=== PATIENT | female | born 2000 | race African-American/Black ===

== ENCOUNTER 2022-05-12 12:42 | Emergency (ER) | payer MEDICAID ==
[~2022-05-12] VITALS: Ht 157.5 cm; Wt 64.0 kg
[2022-05-12] MEDS ORDERED: KETOROLAC 60MG/2ML VIAL IM ONE (13:30)
[2022-05-12 14:08] VITALS: BP 110/74
[2022-05-12] MEDS ORDERED: SODIUM CHLORIDE 0.9% 1,000 ML IV ONE (15:30)
[2022-05-12] MEDS ORDERED: METOCLOPRAMIDE HCL 10MG/2ML VIAL IV ONE (15:30)
[2022-05-12] MEDS ORDERED: DIPHENHYDRAMINE 50MG/ML VIAL IV ONE (15:30)
== END 2022-05-12 15:56 | disposition left against medical advice (07) ==
LOC: ER 13:20
DX: R51.9 Headache, unspecified (principal); Z20.822 Contact with and (suspected) exposure to COVID-19
CPT/HCPCS: 81025; 87426; 93005; 96372; 99284; J1885; J7030

== ENCOUNTER 2022-06-03 12:23 | Emergency (ER) | payer MEDICAID ==
[~2022-06-03] VITALS: Ht 154.9 cm; Wt 64.0 kg
[2022-06-03] MEDS ORDERED: ACETAMINOPHEN 325MG TABLET PO STA (13:16)
[2022-06-03] MEDS ORDERED: SODIUM CHLORIDE 0.9% 1,000 ML IV ONE (13:30)
[2022-06-03] MEDS ORDERED: KETOROLAC 30MG/ML VIAL IV ONE (13:30)
[2022-06-03 14:08] LABS: CLARITY URINE CLEAR (CLEAR); COLOR URINE YELLOW (YELLOW); KETONES URINE NEGATIVE (NEGATIVE); LEUKOCYTE ESTERASE URINE TRACE (NEGATIVE); NITRITE URINE NEGATIVE (NEGATIVE); OCCULT BLOOD URINE NEGATIVE (NEGATIVE); PROTEIN URINE NEGATIVE (NEGATIVE); SPECIFIC GRAVITY URINE 1.018 (1.005-1.030)
[2022-06-03 14:32] LABS: BASOPHILS % 0.9 % (0.0-2.0); EOSINOPHILS % 2.5 % (0.0-5.0); HEMATOCRIT. 39.8 % (36.0-48.0); LYMPHOCYTES % 23.4 % (20.0-50.0); MEAN CORPUSCULAR HEMOGLOBIN 28.7 pg (28.0-32.0); MEAN CORPUSCULAR VOLUME 87.8 fL (81.0-99.0); MONOCYTES % 8.9 % (2.0-8.0); NEUTROPHILS % 64.3 % (40.0-76.0); PLATELET 269 x1000/uL (130-400); RED BLOOD CELL COUNT 4.53 mill/uL (4.2-5.4); RED CELL DISTRIBUTION WIDTH 13.8 % (11.6-14.6)
[2022-06-03 14:39] LABS: CHLORIDE 107 mEq/L (98-107)
[2022-06-03 14:46] LABS: HCG SCREEN NEGATIVE
[2022-06-03] MEDS ORDERED: SUMA100T16 MT (15:29)
[2022-06-03] MEDS ORDERED: DIPHENHYDRAMINE 50MG/ML VIAL IV NR (15:30)
[2022-06-03] MEDS ORDERED: PROCHLORPERAZINE 10MG/2ML VIAL IV NR (15:30)
[2022-06-03 15:45] VITALS: BP 119/74
[2022-06-03] MEDS ORDERED: ACETAMINOPHEN 325MG TABLET PO NR (15:45)
[2022-06-03] MEDS ORDERED: KETOROLAC 30MG/ML VIAL IV NR (15:45)
== END 2022-06-03 17:15 | disposition home or self-care (01) ==
LOC: ER 12:25
DX: R55 Syncope and collapse (principal); R51.9 Headache, unspecified
CPT/HCPCS: 36415; 71045; 80053; 81003; 83880; 84484; 84703; 85025; 93005; 96361; 96374; 96375; 99285; J0780; J1200; J1885; J7030

== ENCOUNTER 2022-08-26 11:37 | Emergency (ER) | payer MEDICAID ==
[~2022-08-26] VITALS: Ht 160 cm; Wt 59.0 kg
[~2022-08-26 11:37] MED LIST: SUMA100T16 MT
[2022-08-26] MEDS ORDERED: KETOROLAC 30MG/ML VIAL IM ONE (13:15)
[2022-08-26 13:50] VITALS: BP 126/88
[2022-08-26 14:03] LABS: HEMATOCRIT. 38.9 % (36.0-48.0); HEMOGLOBIN. 12.9 g/dL (12.0-16.0); MEAN CORPUSCULAR HEMOGLOBIN 28.7 pg (28.0-32.0); MEAN CORPUSCULAR VOLUME 86.2 fL (81.0-99.0); MEAN PLATELET VOLUME 8.2 fl (7.4-10.4); PLATELET 240 x1000/uL (130-400); RED BLOOD CELL COUNT 4.52 mill/uL (4.2-5.4); RED CELL DISTRIBUTION WIDTH 13.8 % (11.6-14.6)
[2022-08-26 14:12] LABS: CHLORIDE 107 mEq/L (98-107)
[2022-08-26] MEDS ORDERED: ACET-2708 MT (14:32)
[2022-08-26] MEDS ORDERED: PSEU120T56 MT (14:32)
[2022-08-26 14:53] LABS: PLATELET ESTIMATE NORMAL
== END 2022-08-26 14:56 | disposition home or self-care (01) ==
LOC: ER 11:37
DX: B34.9 Viral infection, unspecified (principal)
CPT/HCPCS: 36415; 80048; 81025; 85025; 96372; 99283; J1885

== ENCOUNTER 2022-11-14 19:32 | Emergency (ER) | payer MEDICAID ==
[~2022-11-14] VITALS: Ht 157.5 cm; Wt 64.0 kg
[~2022-11-14 19:32] MED LIST changes: +ACET-2708 MT; +PSEU120T56 MT
[2022-11-14 20:11] VITALS: BP 123/82
== END 2022-11-14 21:30 | disposition left against medical advice (07) ==
LOC: ER 19:32
DX: Z53.21 Procedure and treatment not carried out due to patient leaving prior to being seen by health care provider (principal)

== ENCOUNTER 2023-02-15 06:10 | Emergency (ER) | payer MEDICAID, OTHER ==
[~2023-02-15] VITALS: Ht 157.5 cm; Wt 64.0 kg
[2023-02-15 07:44] LABS: BASOPHILS % 0.6 % (0.0-2.0); HEMATOCRIT. 35.4 % (36.0-48.0); HEMOGLOBIN. 11.8 g/dL (12.0-16.0); LYMPHOCYTES % 29.1 % (20.0-50.0); MEAN CORPUSCULAR HEMOGLOBIN 28.6 pg (28.0-32.0); MEAN CORPUSCULAR VOLUME 85.8 fL (81.0-99.0); MEAN PLATELET VOLUME 7.6 fl (7.4-10.4); MONOCYTES % 11.2 % (2.0-8.0); NEUTROPHILS % 56.1 % (40.0-76.0); PLATELET 241 x1000/uL (130-400); RED BLOOD CELL COUNT 4.13 mill/uL (4.2-5.4); RED CELL DISTRIBUTION WIDTH 14.9 % (11.6-14.6)
[2023-02-15 07:56] LABS: CHLORIDE 107 mEq/L (98-107)
[2023-02-15 08:14] LABS: CLARITY URINE CLEAR (CLEAR); COLOR URINE YELLOW (YELLOW); KETONES URINE NEGATIVE (NEGATIVE); OCCULT BLOOD URINE NEGATIVE (NEGATIVE); PROTEIN URINE NEGATIVE (NEGATIVE); SPECIFIC GRAVITY URINE 1.018 (1.005-1.030)
[2023-02-15 08:15] LABS: LEUKOCYTE ESTERASE URINE NEGATIVE (NEGATIVE); NITRITE URINE NEGATIVE (NEGATIVE); UROBILINOGEN URINE 0.2 E.U./dL (0.2-1.0)
[2023-02-15] MEDS ORDERED: IBUP-2029 MT (13:15)
[2023-02-15 13:36] VITALS: BP 113/72
[2023-02-19 04:07] LABS: NEISSERIA GONORRHOEAE NAA Negative (Negative)
== END 2023-02-15 13:51 | disposition home or self-care (01) ==
LOC: ER 06:10
DX: K80.20 Calculus of gallbladder without cholecystitis without obstruction (principal)
CPT/HCPCS: 36415; 76705; 76830; 76856; 80053; 81003; 81025; 85025; 87210; 87491; 87591; 99284

== ENCOUNTER 2023-04-10 04:05 | Emergency (ER) | payer OTHER ==
[~2023-04-10] VITALS: Ht 157.5 cm; Wt 59.3 kg
[~2023-04-10 04:05] MED LIST changes: +IBUP-2029 MT
[2023-04-10 04:15] VITALS: O2SAT 100
[2023-04-10 04:40] LABS: BASOPHILS % 0.7 % (0.0-2.0); EOSINOPHILS % 2.7 % (0.0-5.0); HEMOGLOBIN. 12.3 g/dL (12.0-16.0); LYMPHOCYTES % 36.2 % (20.0-50.0); MEAN CORPUSCULAR HEMOGLOBIN 28.3 pg (28.0-32.0); MEAN CORPUSCULAR VOLUME 85.1 fL (81.0-99.0); MEAN PLATELET VOLUME 8.2 fl (7.4-10.4); MONOCYTES % 13.5 % (2.0-8.0); NEUTROPHILS % 46.9 % (40.0-76.0); PLATELET 214 x1000/uL (130-400); RED BLOOD CELL COUNT 4.35 mill/uL (4.2-5.4); RED CELL DISTRIBUTION WIDTH 14.2 % (11.6-14.6)
[2023-04-10 04:49] LABS: CLARITY URINE CLEAR (CLEAR); COLOR URINE YELLOW (YELLOW); KETONES URINE 1+ (NEGATIVE); LEUKOCYTE ESTERASE URINE NEGATIVE (NEGATIVE); NITRITE URINE NEGATIVE (NEGATIVE); OCCULT BLOOD URINE 2+ (NEGATIVE); PH URINE 5.5 (4.5-8.0); PROTEIN URINE NEGATIVE (NEGATIVE); SPECIFIC GRAVITY URINE 1.022 (1.005-1.030); UROBILINOGEN URINE 0.2 E.U./dL (0.2-1.0)
[2023-04-10 04:55] LABS: CHLORIDE 107 mEq/L (98-107)
[2023-04-10 05:17] LABS: HCG SCREEN NEGATIVE
[2023-04-10] MEDS ORDERED: METOCLOPRAMIDE HCL 10MG TABLET PO ONE (08:00)
[2023-04-10] MEDS ORDERED: ONDA8TAB13 PO (09:25)
[2023-04-10] MEDS ORDERED: TOPUD PO (09:25)
[2023-04-10 09:45] VITALS: BP 103/70; PULSE 65; RESP 18; TEMP 97.8
== END 2023-04-10 09:47 | disposition home or self-care (01) ==
LOC: ER 04:36
DX: K80.20 Calculus of gallbladder without cholecystitis without obstruction (principal); R51.9 Headache, unspecified
CPT/HCPCS: 99284; 76705; 80053; 81003; 81025; 84703; 83690; 85025; 36415; J8597